=== PATIENT | male | born 1990 | race Caucasian/White ===

== ENCOUNTER 2018-06-23 19:25 | Emergency (ER) | payer MEDICARE, MEDICAID ==
[2018-06-23] MEDS ORDERED: Clindamycin CAP* 150 MG PO ONE (20:07)
[2018-06-23 20:11] VITALS: BP 140/98
--- NOTE | 2018-06-23 20:19 | UC ---
Dental HPI - HPI Summary HPI Summary: Patient presents emergency department with right lower jaw pain and swelling. Patient states he has an abscess in his tooth. Patient states he poked at it and got some white discharge and a bad taste in his mouth. Pt states pain improved after he got some drainage from his tooth. Patient states he's had intermittent swelling on and off for the last several months. Patient denies any ear pain. No difficulties well-appearing patient denies fevers or chills. Patient has taken some Motrin with little improvement. Patient denies fevers or chills. Patient does chew tobacco. Patient states he previously had a dentist but hasn't gone quite some time. Patient's hopeful with some antibiotics for "fix it" Patient's medications reviewed this visit - History of Current Complaint Chief Complaint: UCDentalProblem Stated Complaint: TOOTH ACHE Time Seen by Provider: 06/23/18 19:48 Hx Obtained From: Patient Onset/Duration: Gradual Onset Severity: Mild Pain Intensity: 3 Pain Scale Used: 0-10 Numeric - Allergies/Home Medications Allergies/Adverse Reactions: Allergies Allergy/AdvReac Type Severity Reaction Status Date / Time Penicillins Allergy Airway Verified 06/23/18 20:08 Obstruction PMH/Surg Hx/FS Hx/Imm Hx Previously Healthy: Yes Other Neurological History: disc herniations - Surgical History Surgical History: Yes Surgery Procedure, Year, and Place: Right Hand Amputation, 2011. L4 L5 Discectomy, - Family History Known Family History: Positive: Other - noncotributory - Social History Occupation: Disabled Lives: With Family Alcohol Use: None Substance Use Type: None Substance Use Comment - Amount & Last Used: 2 x month Smoking Status (MU): Unknown if Ever Smoked Type: Smokeless Tobacco Amount Used/How Often: 1 can weekly Length of Time of Smoking/Using Tobacco: 12 Years Have You Smoked in the Last Year: Yes Review of Systems Constitutional: Negative Skin: Negative ENT: Dental Pain All Other Systems Reviewed And Are Negative: Yes Physical Exam - Summary Physical Exam Summary: Vital Signs Reviewed: Yes A+Ox3, no distress Eyes: Conjunctiva Clear, FAVIOLA, EOM intact and full,no mastoid pain. no TMJ pain Pt with mild edema right lower mandible Pt with poor dentition. adjacent to #28 /#29 pt with while area of macerated tissue on buccal membrane. Pt without odor. mild TTP, No erythema, fluctuance. no intraoral edema. no TMJ pain neck: supple Respiratory: Positive: CTA throughout no w/r. No respiratory distress, No accessory muscle use Cardiovascular: skin color reflect adequate perfusion RR nl s1 s2 no m/r Musculoskeletal Exam: BANUELOS x 4 without difficulty Neurological: Positive: Alert, ambulatory without difficulty Psychological: Positive: Normal Response To Family Skin: Positive: no rash, no ecchymosis Triage Information Reviewed: Yes Vital Signs: Initial Vital Signs Temp 97.8 F 06/23/18 20:05 Pulse 86 06/23/18 20:05 Resp 15 06/23/18 20:05 BP 140/98 06/23/18 20:05 Pulse Ox 100 06/23/18 20:05 Dental Complaint Course/Dx - Course Course Of Treatment: Pt with discomfort and edema adjacent to #28/#29 Pt states he poked at tooth - got drainage I d/w pt concerned about the appearance - white , macerated tissue. pt does chew tobacco products. will treat with Clinda, chlorexadine rinse. recommend dental follow-up pt was given dental referral. pt aware of concern for malignancy. Pt states understanding and agreement with plan - Differential Dx/Diagnosis Provider Diagnoses: dental abscess vs growth Discharge - Sign-Out/Discharge Documenting (check all that apply): Patient Departure All imaging exams completed and their final reports reviewed: No Studies - Discharge Plan Condition: Good Disposition: HOME Prescriptions: Chlorhexidine MOUTHWASH 0.12%* [Peridex Mouth Wash 0.12%*] 15 ml .SEE ORDER Q6HR #200 ml Clindamycin HCl 300 mg PO TID #30 capsule Patient Education Materials: Dental Abscess (ED) Referrals: Jamie Jones [Primary Care Provider] - Additional Instructions: - As discussed in visit today, the doctors concerned about the appearance of your tooth. This may represent an infection that he states she had opened and drained. Alternately, as discussed with you, the doctors concerned it could be tumor related to joint tobacco. Is recommended to take antibiotics exactly as prescribed until gone. Additionally, is recommended that she use mouthwash 3-4 times a day as prescribed. Okay to alternate ibuprofen (Motrin, Advil) and Tylenol every 3 hours for pain. Take with food. You have been given a dental referral list. Is recommended to call tomorrow to schedule follow-up appointment. If you develop any trouble swallowing or breathing, difficulty with your spit it is recommended to go to emergency department. - Billing Disposition and Condition Condition: GOOD Disposition: Home
== END 2018-06-23 20:23 | disposition home or self-care (01) ==
LOC: UCCORT 19:25
DX: K04.7 Periapical abscess without sinus (principal); Z72.0 Tobacco use; Z88.0 Allergy status to penicillin; Z89.111 Acquired absence of right hand
CPT/HCPCS: 99212; A9270-GY; G0463

== ENCOUNTER 2019-03-12 14:14 | Emergency (ER) | payer MEDICARE, MEDICAID | END 2019-03-12 15:10 | disposition left against medical advice (07) | LOC: UCCORT 14:14 | DX: K08.89 Other specified disorders of teeth and supporting structures (principal); Z53.21 Procedure and treatment not carried out due to patient leaving prior to being seen by health care provider ==

== ENCOUNTER 2019-07-05 16:24 | Emergency (ER) | payer MEDICARE, MEDICAID ==
[2019-07-05 18:01] VITALS: BP 141/86
--- NOTE | 2019-07-05 18:18 | UC ---
Throat Pain/Nasal Jim HPI - HPI Summary HPI Summary: Patient is a 28yo male presenting with sinus pressure, ear pressure, and intermittent headaches x3 weeks. Stated it began as cold symptoms which have all resolved except for the nasal congestion. States his "face hurts." He has tried otc cold medications and flonase without relief. Denies cough, sore throat. Denies SOB and wheezing. Denies fever and chills. Eating and drinking as normal. - History of Current Complaint Chief Complaint: UCRespiratory Stated Complaint: SINUS PRESSURE Hx Obtained From: Patient Onset/Duration: Gradual Onset, Lasting Weeks Severity: Moderate Pain Intensity: 5 Pain Scale Used: 0-10 Numeric - Allergies/Home Medications Allergies/Adverse Reactions: Allergies Allergy/AdvReac Type Severity Reaction Status Date / Time Penicillins Allergy Airway Verified 07/05/19 18:01 Obstruction Home Medications: Home Medications Buprenorp/Nalox 8-2 MG SL TAB [Suboxone 8-2 mg SL TAB*] 1 tab.sl SL DAILY [History Confirmed 07/05/19] PMH/Surg Hx/FS Hx/Imm Hx Previously Healthy: Yes - Surgical History Surgical History: Yes Surgery Procedure, Year, and Place: Right Hand Amputation, 2012. L4 L5 Discectomy, - Family History Known Family History: Positive: Other - noncotributory - Social History Alcohol Use: None Substance Use Type: None Substance Use Comment - Amount & Last Used: 2 x month Smoking Status (MU): Never Smoked Tobacco Type: Smokeless Tobacco Amount Used/How Often: 1 can weekly Length of Time of Smoking/Using Tobacco: 12 Years Have You Smoked in the Last Year: Yes Review of Systems All Other Systems Reviewed And Are Negative: Yes Constitutional: Positive: Negative. Negative: Fever, Chills, Fatigue ENT: Positive: Ear Ache, Sinus Congestion, Sinus Pain/Tenderness. Negative: Sore Throat, Nasal Discharge Respiratory: Positive: Negative. Negative: Shortness Of Breath, Cough Cardiovascular: Positive: Negative Gastrointestinal: Positive: Negative. Negative: Abdominal Pain, Vomiting, Nausea Musculoskeletal: Positive: Negative Neurological: Positive: Headache Physical Exam Triage Information Reviewed: Yes Appearance: Well-Appearing, No Pain Distress, Well-Nourished Vital Signs: Initial Vital Signs Temp 99.8 F 07/05/19 17:56 Pulse 103 07/05/19 17:56 Resp 16 07/05/19 17:56 BP 141/86 07/05/19 17:56 Pulse Ox 98 07/05/19 17:56 Vital Signs Reviewed: Yes Eyes: Positive: Conjunctiva Clear ENT: Positive: Hearing grossly normal, Pharynx normal, Nasal congestion, Nasal drainage - PND, TMs normal, Sinus tenderness - maxillary, Uvula midline. Negative: TM bulging, TM dull, TM red, Tonsillar swelling, Tonsillar exudate Neck exam: Normal Neck: Positive: Supple, Nontender, No Lymphadenopathy Respiratory Exam: Normal Respiratory: Positive: Lungs clear, Normal breath sounds, No respiratory distress Cardiovascular Exam: Other - regular rhythm, mild tachycardia Cardiovascular: Positive: Tachycardia Neurological: Positive: Alert Psychological: Positive: Age Appropriate Behavior Throat Pain/Nasal Course/Dx - Course Course Of Treatment: I am treating the patient with doxycycline for sinusitis due to penicillin allergy. Instructed to continue with Flonase as directed for symptomatic relief. Instructed to follow-up with physician referral or [facility] if symptoms persist. Patient was understanding and agreed with the treatment plan. - Differential Dx/Diagnosis Provider Diagnosis: Sinusitis, acute Discharge ED - Sign-Out/Discharge Documenting (check all that apply): Patient Departure All imaging exams completed and their final reports reviewed: No Studies - Discharge Plan Condition: Stable Disposition: HOME Prescriptions: DOXYcycline CAP(*) [DOXYcycline 100MG CAP(*)] 100 mg PO BID #14 cap Patient Education Materials: Rhinosinusitis (ED) Referrals: [facility] [Outside] - If Needed [facility] [Outside] - If Needed Additional Instructions: As discussed, take Doxycycline for the treatment of your sinusitis. You may use Flonase as directed for symptomatic relief. You may take ibuprofen as directed for pain relief. Get plenty of rest and fluids. Follow up with one of the referrals listed below if your symptoms worsen or do not resolve within 7 days. - Billing Disposition and Condition Condition: STABLE Disposition: Home
== END 2019-07-05 18:17 | disposition home or self-care (01) ==
LOC: UCCORT 16:24
DX: J01.90 Acute sinusitis, unspecified (principal); Z88.0 Allergy status to penicillin
CPT/HCPCS: 99212; G0463